=== PATIENT | male | born 1945 | race Caucasian/White ===

== ENCOUNTER → 2019-10-07 | Outpatient (CLI) | payer MEDICARE, OTHER ==
--- NOTE | 2019-10-07 10:38 | KCIC ---
EXAM: ULTRASOUND ABDOMINAL AORTA. HISTORY: Hypertension, smoker. Abdominal aortic aneurysm screening. COMPARISON: None. FINDINGS: Sonographic evaluation of the abdominal aorta and common iliac arteries was performed. Proximally, the abdominal aorta is obscured by bowel gas. In its midportion, the aorta measures 2.5 x 2.4 cm. Distally, 2.4 x 2.3 cm. The right common iliac artery measures 1.1 cm. The left measures 1.0 cm. Moderate atherosclerotic plaquing is noted diffusely. There is no evidence of stenosis on Doppler. IMPRESSION: 1. The proximal abdominal aorta is obscured by bowel gas. No abdominal aortic aneurysm is seen. Electronically signed by: Chelo Echevarria MD (10/07/2019 10:35 AM) [facility]
--- NOTE | 2019-10-07 13:05 | KCIC ---
EXAM: CT low dose lung screening without contrast. HISTORY: Greater than 50 pack year smoking history. TECHNIQUE: Computed tomographic images of the chest were obtained without contrast. Multiplanar reformatting was performed. *One or more of the following individualized dose reduction techniques were utilized for this examination: 1. Automated exposure control. 2. Adjustment of the mA and/or kV according to patient size. 3. Use of iterative reconstruction technique. COMPARISON: None. FINDINGS: The heart is normal in size. The aorta is normal in caliber. No pathologically enlarged mediastinal or hilar lymph node is seen. There is no infiltrate, pleural effusion or pneumothorax. There is minimal emphysema with mild biapical pleural parenchymal scarring and subpleural bleb formation. There is minimal central bronchial wall thickening. No suspicious nodule is seen. There is lateral right mid thorax pleural parenchymal scarring or atelectasis along the major fissure. There is no acute finding involving the upper abdomen. There is no suspicious osseous lesion. There are mild chronic thoracic compression deformities at T8 and T3. IMPRESSION: 1. No acute thoracic finding or evidence of pulmonary malignancy. 2. Minimal emphysema with apical predominant subpleural bleb formation and scarring. There is also scarring or atelectasis along the lateral right mid thorax. 3. Minimal central bronchial wall thickening. This can be seen as a sequela of bronchitis. Electronically signed by: María Ugalde MD (10/07/2019 1:02 PM) [facility] [place]
== END | disposition home or self-care (01) ==
LOC: KCIC CT 08:49
PROVIDERS: ATTEND Family Medicine
DX: Z12.2 Encounter for screening for malignant neoplasm of respiratory organs (principal); Z13.6 Encounter for screening for cardiovascular disorders; F17.210 Nicotine dependence, cigarettes, uncomplicated; I70.0 Atherosclerosis of aorta; J43.9 Emphysema, unspecified; J92.9 Pleural plaque without asbestos
CPT/HCPCS: 76770; G0297

== ENCOUNTER → 2020-10-04 | Outpatient (CLI) | payer MEDICARE ==
--- NOTE | 2020-10-04 15:25 | KCIC ---
EXAM: CT Lung Cancer Screening Chest without IV contrast INDICATION: Lung cancer screening. greater than 30 year pack history. TECHNIQUE: Multi-detector row low dose CT images were acquired from the thoracic inlet through the up per abdomen without the use of IV contrast. Scanning parameters were adjusted for evaluation of lung parenchyma for developing lung carcinoma with limited patient exposure. Sagittal and coronal images w ere acquired from the transaxial data. All CT scans performed at this facility utilize dose optimizat ion techniques as appropriate to the exam, including the following: Automated exposure control and ad justment of the mA and/or KV according to patient size (this includes techniques or standardized prot ocols for targeted exams where dose is indication/reason for exam). COMPARISON: 10/07 20 20 cc low-dose lung cancer screening FINDINGS: The absence of IV contrast limits evaluation of soft tissue pathology. CARDIOVASCULAR: Unremarkable. MEDIASTINUM & CARLENE: No adenopathy or masses. LUNGS: Minimal peripheral pleural parenchymal scarring in the anterior lateral right lower lobe. Mild paraseptal pattern emphysema. Otherwise no pulmonary infiltrate, nodule, or other focal abnormality. PLEURAL SPACE: No pleural effusions. No pneumothorax. OSSEOUS & SOFT TISSUES: There is irregularity to the distal right clavicle that could reflect sequela e of an old fracture. No acute or aggressive osseous lesions shown. ABDOMEN: A 1.2 cm low-density lesion in the periphery of hepatic segment 7 is unchanged. It is statis tically likely to be a cyst. Lung-RADS ASSESSMENT: LUNG-RADS CATEGORY 1: Negative/No nodules and definitely benign nodules. -- Continue annual screening with LDCT in 12 months. E2: Soft tissue structures and skeletal structures other than the lungs contain benign findings that do not require additional follow up IMPRESSION: No evidence of a primary lung malignancy. Recommend follow-up in one year. Electronically signed by: Pepper Chandra MD (10/04/2020 3:22 PM) [id number]
== END ==
LOC: KCIC CT 10:13
PROVIDERS: ATTEND Family Medicine
DX: Z12.2 Encounter for screening for malignant neoplasm of respiratory organs (principal); J43.9 Emphysema, unspecified; F17.210 Nicotine dependence, cigarettes, uncomplicated
CPT/HCPCS: 71271

== ENCOUNTER → 2021-10-04 | Outpatient (CLI) | payer MEDICARE ==
--- NOTE | 2021-10-04 11:38 | KCIC ---
EXAM: CT CHEST WITHOUT CONTRAST (LDCT LUNG CANCER SCREENING). HISTORY: Risk factors for pulmonary malignancy. Tobacco abuse. TECHNIQUE: CT of the chest was performed without intravenous contrast using a low-dose lung screening protocol. Findings analysis is based on ACR Lung-RADS v1.1. *One or more of the following individual ized dose reduction techniques were utilized for this examination: 1. Automated exposure control. 2. Adjustment of the mA and/or kV according to patient size. 3. Use of iterative reconstruction technique. COMPARISON: 10/04/2020. FINDINGS: The heart is normal in size. The aorta is normal in caliber. There is no lymphadenopathy. T here is no infiltrate, pleural effusion or pneumothorax. There is mild emphysema with biapical scarri ng and subpleural bleb formation. There is no suspicious pulmonary nodule. There is a stable 1.4 cm h ypodense lesion within the posterior right hepatic lobe. This likely a cyst. There is no acute or maxwell picious osseous finding. IMPRESSION/RECOMMENDATION: 1. No suspicious pulmonary nodule. Lung RADS category 1: Continued low dose lung cancer screening CT in 12 months is recommended. 2. Mild emphysema. 3. Stable suspected hepatic cyst. Electronically signed by: María Ugalde MD (10/04/2021 11:35 AM) [id number]
== END ==
LOC: KCIC CT 09:36
PROVIDERS: ATTEND Family Medicine
DX: J43.9 Emphysema, unspecified (principal); K76.89 Other specified diseases of liver; F17.210 Nicotine dependence, cigarettes, uncomplicated
CPT/HCPCS: 71271